=== PATIENT | male | born 1980 | race Caucasian/White ===

== ENCOUNTER 2018-12-29 18:21 | Emergency (ER) | payer OTHER, SELFPAY ==
[2018-12-29 18:25] VITALS: BP 147/94; PULSE 106; RESP 20; TEMP 36.8; O2SAT 98
--- NOTE | 2018-12-29 18:29 | W.ED.GENAD ---
Discharge Plan Disposition Patient Disposition: HOME Condition: Stable Discharge Details Chief Complaint: AnimalBite Clinical Impression: Dog bite of elbow Primary Care Provider: Nick Orlando ED Provider: Martinez Jorge Home Meds and New Rx's Prescriptions: No Action doxycycline hyclate 100 mg tablet 100 mg PO BID Qty: 10 RF: 0 prednisone 20 mg tablet 40 mg PO DAILY Qty: 8 RF: 0 epinephrine 0.3 mg/0.3 mL auto-injector 0.3 mg IM ONCE Qty: 2 RF: 4 Discharge Instructions Instructions: Animal Bite (ED) Additional Instructions: Please continue to keep wound clean and dry and watch for any signs of worsening infection. Please take anabolic as prescribed until fully complete. Feel free to return the emergency department for any new or worsening symptoms otherwise follow-up with your primary care provider or occupational medicine for reassessment as needed. Referrals: Nick Orlando [Primary Care Provider] - (as needed) Discharge Data Discharge Date/Time-TO BE ENTERED AT DEPARTURE: 12/29/18 18:55 Medical Decision Making Patient presenting to the emergency department for chief complaint of animal bite. 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 Patient did have a long sleeve shirt on when this occurred and states minor injury but was unsure due to animal bite. Patient denies any other injury or trauma. There is a small abrasion/penetrating wound to the dorsal lateral aspect of the elbow with no bony tenderness, no abnormal range of motion, no neurological or vascular injury noted. Given animal bite patient does state that he is up-to-date on tetanus and the dog was reported up-to-date on all immunizations including rabies vaccine. Patient was offered prophylactic antibiotics for prevention of infection and encouraged to watch wound close. Patient placed up on Augmentin first dose was given in emergency department. return precautions discussed. After discussion of diagnosis and plan of care patient has no further needs, questions, or concerns and states clear understanding to return to the emergency department for any worsening symptoms or further concerns HPI General Mode of arrival: ambulatory. Date/Time Provider Initiated Documentation: 12/29/18 18:25. Limitations to Documentation: no limitations. Information obtained by: patient and RN notes reviewed. History of Present Illness 38 year old M presents to the emergency department with the chief complaint of Dogbite, right elbow, described as mild, Quality is described as other (denies pain), and is localized to the right and upper extremity. Patient started experiencing this minute(s) (30) Patient notes no other symptoms.. Patient did receive the following treatments prior to arrival, none Related Data Home Medications Medication Instructions Recorded Confirmed doxycycline hyclate 100 mg PO BID #10 tab 12/30/18 prednisone 40 mg PO DAILY #8 tab 12/30/18 epinephrine 0.3 mg IM ONCE #2 each 01/07/19 Previous Rx's Medication Instructions Recorded doxycycline hyclate 100 mg PO BID #10 tab 12/30/18 prednisone 40 mg PO DAILY #8 tab 12/30/18 epinephrine 0.3 mg IM ONCE #2 each 01/07/19 Allergies Allergy/AdvReac Type Severity Reaction Status Date / Time amoxicillin [From Augmentin] Allergy Anaphylaxsi Unverified 01/07/19 16:08 s clavulanic acid Allergy Anaphylaxsi Unverified 01/07/19 16:08 [From Augmentin] s Sulfa (Sulfonamide Allergy Unverified 01/07/19 16:08 Antibiotics) General Stated Complaint: AnimalBite BINTA: 4 Review of Systems Musculoskeletal Denies deformity, Denies limited range of motion and Denies numbness Integumentary/Breasts Reports as per HPI, Denies erythema and Reports wounds Neurologic Denies numbness and Denies paresthesias [facility] Surgical History RHINOPLASTY (~2001) Family History Mother No problems noted. Father Personal history of malignant neoplasm Sister No problems noted. Grandfather Personal history of malignant neoplasm Grandfather No problems noted. Grandmother No problems noted. Grandmother Personal history of malignant neoplasm Daughter No problems noted. Social History Smoking/Tobacco Use Status: Never Drug use: Never Substance use type: does not use Do you feel safe at home: Yes Do you feel safe in your relationship?: Yes Exam Const General: cooperative, healthy appearing, comfortable and no acute distress Orientation: alert, awake and oriented x3 Extrem Right upper extremity: no joint enlargement, elbow/forearm Details: swelling (to dorsal elbow), normal ROM, penetrating wound (to dorsal lateral elbow) and distal pulses intact; no tenderness, no ecchymosis and no crepitus, wrist Details: normal to inspection and hand Details: normal to inspection Course Vital Signs Temperature 36.8 C 12/29/18 18:25 Pulse 106 H 12/29/18 18:25 Respiratory Rate 20 12/29/18 18:25 Blood Pressure 147/94 H 12/29/18 18:25 Pulse Oximetry 98 12/29/18 18:25 Temperature 36.8 C 12/29/18 18:25 Temperature Source Temporal Artery Scan 12/29/18 18:25 Pulse 106 H 12/29/18 18:25 Respiratory Rate 20 12/29/18 18:25 Respiratory Effort Non-Labored 12/29/18 18:25 Blood Pressure 147/94 H 12/29/18 18:25 Blood Pressure Position Sitting 12/29/18 18:25 Pulse Oximetry 98 12/29/18 18:25 Oxygen Delivery Method Room Air 12/29/18 18:25 Oxygen Flow Rate 0 12/29/18 18:25 Pain Level 0 12/29/18 18:25
[2018-12-29] MEDS: Amoxicillin 875/Clav. 125 TAB PO (18:53)
--- NOTE | 2018-12-29 18:56 | NUR.NOTE ---
animal bite form faxed to [facility] at [phone].Nursing Note:
== END 2018-12-29 18:55 | disposition home or self-care (01) ==
PROVIDERS: Emergency Provider Nurse Practitioner Family; PCP Family Medicine
DX: S51.051A Open bite, right elbow, initial encounter (principal); W54.0XXA Bitten by dog, initial encounter; Y35.891A Legal intervention involving other specified means, law enforcement official injured, initial encounter; Y99.0 Civilian activity done for income or pay
CPT/HCPCS: 99283

== ENCOUNTER 2018-12-29 19:47 | Emergency (ER) | payer OTHER, BC, SELFPAY ==
[2018-12-29] VITALS (42 sets, daily range): BP systolic 122–152; BP diastolic 55–79; PULSE 75–126; RESP 11–26; TEMP 36.6; O2SAT 89–98
[2018-12-29] MEDS: diphenhydrAMINE 50 MG/ML VIAL IM (19:50)
[2018-12-29] MEDS: EPINEPHrine 0.3 MG KIT IM ×2 (19:50→20:37)
[2018-12-29] MEDS: methylPREDNISolone SUCC 125 MG VIAL IVP (20:02)
[2018-12-29] MEDS: FAMOTIDINE 20 MG/50 ML BAG 100 MG (22:07)
--- NOTE | 2018-12-29 22:35 | ED.GENADUL_ITS ---
Discharge Plan Disposition Patient Disposition: HOME Discharge Details Chief Complaint: Allergic Clinical Impression: Anaphylactic reaction, Allergy to drug Primary Care Provider: Nick Orlando ED Provider: Jesu Christensen Home Meds and New Rx's Prescriptions: New doxycycline hyclate 100 mg tablet 100 mg PO BID Qty: 10 RF: 0 prednisone 20 mg tablet 40 mg PO DAILY Qty: 8 RF: 0 No Action No Known Home Meds RF: 0 Discharge Instructions Instructions: Anaphylaxis (ED) Additional Instructions: Take benadryl 25mg every 8 hours for the next 3 days. Take prednisone as prescribed. Take doxycycline as prescribed. Stop taking Augmentin. Please contact your primary care physician to arrange follow-up. Return to the ER for any worsening or new concerning symptoms. Stand Alone Forms: Work Release Referrals: Nick Orlando. [Primary Care Provider] - Medical Decision Making 38-year-old male here with severe anaphylactic reaction to Augmentin. Patient treated initially with epinephrine 0.3 mg IM, Benadryl 50 mg IM. IV was established she was given 125 mg of Solu-Medrol as well as Pepcid 20 mg. Patient was reassessed after initial epinephrine administration and had improvement in symptoms but continued to have rash. He was given a second dose of epinephrine 0.3 mg IM. Rash completely resolved. Patient was monitored in the emergency department for 4 hours after administration of epinephrine. He did not have recurrent symptoms. Patient was reassessed prior to discharge in stable. Augmentin was discontinued and patient was started on doxycycline for prophylaxis for his dog bite. Disposition decision was made weighing the risks and benefits of hospitalization versus outpatient treatment, the risk for further decompensation, and the patient's wishes. The patient was stable and requested discharge. Prior to discharge, my usual and customary return precautions were reviewed with the patient - this included follow-up instructions and reason to return to the emergency department if condition worsens, does not improve as expected, or other new concerns arise. HPI General Mode of arrival: ambulatory . Date/Time Provider Initiated Documentation: 12/29/18 19:50 . Limitations to Documentation: no limitations . Information obtained by: patient . HPI Narrative: 38-year-old male with prior history to sulfa antibiotics, presents after just being seen here and treated for dog bite to his right elbow with Augmentin, with chief complaint of allergic reaction. Reaction is severe. He has diffuse body red rash that is itchy. He is having a scratching sensation in his throat and it feels like his lips are swollen. Feels like he is nauseous. No modifiers. Related Data Home Medications Medication Instructions Recorded Confirmed Unknown [No Known Home Meds] 12/30/18 12/30/18 doxycycline hyclate 100 mg PO BID #10 tab 12/30/18 prednisone 40 mg PO DAILY #8 tab 12/30/18 Previous Rx's Medication Instructions Recorded doxycycline hyclate 100 mg PO BID #10 tab 12/30/18 prednisone 40 mg PO DAILY #8 tab 12/30/18 Allergies Allergy/AdvReac Type Severity Reaction Status Date / Time amoxicillin [From Augmentin] Allergy Anaphylaxsi Unverified 12/29/18 20:00 s clavulanic acid Allergy Anaphylaxsi Unverified 12/29/18 20:00 [From Augmentin] s Sulfa (Sulfonamide Allergy Unverified 12/29/18 20:00 Antibiotics) General Stated Complaint: Allergic BINTA: 1 Review of Systems Review of Systems as per HPI, full review limited by acuity of condition [facility] Social History Smoking and Tabacco status: Never Exam Const General: cooperative, well developed and anxious HENMT Mouth: moist mucous membranes Throat: posterior oropharynx normal Eyes Conjunctivae: normal conjunctivae Sclera: normal sclerae Neck Neck: trachea midline and supple Resp Auscultation: clear to auscultation bilaterally, no rales, no rhonchi and no wheezes Cardio Jugular venous pressure: no JVD Rate: tachycardic Rhythm: regular rhythm GI Palpation: soft, not firm, no guarding, no masses, not rigid and nontender Skin Rashes: rashes noted (diffuse full body hives ) Neuro General: alert, awake and tone normal Extrem General: no edema Psych Mental Status: mental status grossly normal Course Vital Signs Temperature 36.6 C 12/29/18 19:57 Pulse 126 H 12/29/18 19:57 Respiratory Rate 22 12/29/18 19:57 Blood Pressure 152/79 H 12/29/18 19:57 Pulse Oximetry 91 L 12/29/18 19:57 Temperature 36.6 C 12/29/18 19:57 Temperature Source Skin 12/29/18 19:57 Pulse 107 H 12/29/18 22:16 Pulse 105 H 12/29/18 22:16 Respiratory Rate 17 12/29/18 22:16 Respiratory Effort 12/29/18 20:26 Respiratory Pattern Normal 12/29/18 20:26 Blood Pressure 137/60 12/29/18 22:16 Blood Pressure Mean 79 12/29/18 22:16 Blood Pressure Position Sitting 12/29/18 19:57 Pulse Oximetry 92 L 12/29/18 22:10 Oxygen Delivery Method Room Air 12/29/18 19:57 Oxygen Flow Rate 0 12/29/18 19:57 Critical Care Time Critical Care Time: Yes Total Critical Care Time: 40 Attestation: I spent greater than 40 minutes addressing this patient's immediate life threats
[2018-12-30 00:01] VITALS: BP 146/67; PULSE 87; PULSE 96; RESP 22; O2SAT 94
== END 2018-12-30 00:24 | disposition home or self-care (01) ==
PROVIDERS: Emergency Provider Student in an Organized Health Care Education/Training Program; PCP Family Medicine
DX: T88.6XXA Anaphylactic reaction due to adverse effect of correct drug or medicament properly administered, initial encounter (principal); L50.0 Allergic urticaria; J02.9 Acute pharyngitis, unspecified; T36.95XA Adverse effect of unspecified systemic antibiotic, initial encounter
CPT/HCPCS: 94640; 96365; 96372; 96375; 99291; J0171; J2930

== ENCOUNTER 2019-01-07 15:51 | Emergency (ER) | payer BC, SELFPAY ==
[2019-01-07] VITALS (13 sets, daily range): BP systolic 122–125; BP diastolic 63–75; PULSE 58–78; RESP 9–21; TEMP 36.4–36.7; O2SAT 91–98
[2019-01-07] MEDS: EPINEPHrine 0.3 MG KIT IM (15:55)
[2019-01-07] MEDS: methylPREDNISolone SUCC 125 MG VIAL (15:59)
[2019-01-07] MEDS: Normal Saline 1,000 ML 1000 ML IV (16:00)
[2019-01-07] MEDS: FAMOTIDINE 20 MG/50 ML BAG 200 MG IVPB (16:05)
--- NOTE | 2019-01-07 18:18 | W.ED.GENAD ---
Discharge Plan Disposition Patient Disposition: HOME Discharge Details Chief Complaint: Allergic Clinical Impression: Allergic reaction to amoxicillin/clavulanic acid Primary Care Provider: Nick Orlando ED Provider: Shaquille Babb Home Meds and New Rx's Prescriptions: New epinephrine 0.3 mg/0.3 mL auto-injector 0.3 mg IM ONCE Qty: 2 RF: 4 No Action doxycycline hyclate 100 mg tablet 100 mg PO BID Qty: 10 RF: 0 prednisone 20 mg tablet 40 mg PO DAILY Qty: 8 RF: 0 Discharge Instructions Instructions: Anaphylaxis (ED) Additional Instructions: Please take the prednisone from your previous prescription as directed. Please take 25 mg of Benadryl every 6-8 hours, and use the epinephrine if you have any signs of allergic reaction again. If you notice any worsening of your symptoms, or any new symptoms such as vomiting, diarrhea, fever, chills, shortness of breath, chest pain, numbness, weakness, or fainting , please return immediately to the emergency department for reevaluation. Please follow up with your primary care provider as soon as possible for reassessment and reevaluation. As always, it was a pleasure participating in your medical care today. Referrals: Nick Orlando. [Primary Care Provider] - Medical Decision Making This is a pleasant 38-year-old male with a past medical history of allergic reaction to Augmentin, who presents today for allergic reaction. He was handling his daughter's amoxicillin pills began to have notable rash, nausea, tightness in throat. Initial physical exam demonstrated notable rash and hives consistent with allergic reaction, and subjective complaint of throat tightening however there was no wheezes rales or rhonchi or signs of airway edema or compromise. Because of the patient's symptoms as well as his previous reaction 8 days ago, 0.3 mg of epinephrine was given intramuscularly into the left lateral thigh, Solu-Medrol and Pepcid were also given, Benadryl was held as he had already taken 100 mg at home. Patient had notable improvement of his symptomatology after this. We will continue to observe the patient for the next 3 hours to reassess for any return of his symptoms. 7 PM Patient symptoms have completely resolved. He denies any GI issues, hyper secretions, throat tightness, his redness and rash is completely resolved. 1 or 2 minimal blanching hives are present, however the plethora of hives that he had before completely resolved. No signs of return of his anaphylaxis. His is gone and picked up the epinephrine that we called him, and so he now has it as needed for use. The patient still has his prednisone that he is prescribed on his last visit and has not taken any pills, and so this course is still appropriate for use. He has home Benadryl already, I do not think additional medication with Pepcid is indicated at this time for home use. Patient will be seeing an cardiovascular or nurse for further follow-up, we discussed the importance of close PCP follow-up, as well as red flags which to return. Discussed the avoidance of any antibiotic in the penicillin family, occluding cephalosporins for the time being. With no current signs of anaphylaxis, no resolution of his symptoms reviewed the patient be safely discharged home as he is clinically stable at this time. I have extensively reviewed the treatment plan and discharge instructions with the patient. I have addressed all patient concerns at this time. The patient was made aware of what symptoms to monitor for that would warrant a return to the emergency department. Discussed the plan with the patient, they demonstrate verbal understanding and agreement with our assessment and plan at this time. HPI General Date/Time Provider Initiated Documentation: 01/07/19 15:57. HPI Narrative: This is a pleasant 38-year-old male who presents today for evaluation of allergic reaction. The patient was here within the past 10 days for allergic reaction. At that time he was bitten by dog and started taking Augmentin, he developed a notable allergic reaction requiring epinephrine and steroids. After resolution of his symptoms he was eventually discharged home. Today he presents again with symptoms of allergic reaction. Patient states that his daughter was prescribed amoxicillin, and he was handling her amoxicillin when he suddenly began to develop a rash, tightness in his throat, and symptoms concerning for allergic reaction. He had no EpiPen, and he came to the ER immediately for reassessment. He had no associated vomiting or diarrhea but did admit to notable nausea. He denies any vision changes, swelling in his tongue, difficulty breathing or swallowing, or difficulty controlling secretions. The patient took none of his steroids that he was prescribed on his last visit, but did take 100 mg of Benadryl prior to arrival here today Related Data Home Medications Medication Instructions Recorded Confirmed doxycycline hyclate 100 mg PO BID #10 tab 12/30/18 prednisone 40 mg PO DAILY #8 tab 12/30/18 epinephrine 0.3 mg IM ONCE #2 each 01/07/19 Previous Rx's Medication Instructions Recorded doxycycline hyclate 100 mg PO BID #10 tab 12/30/18 prednisone 40 mg PO DAILY #8 tab 12/30/18 epinephrine 0.3 mg IM ONCE #2 each 01/07/19 Allergies Allergy/AdvReac Type Severity Reaction Status Date / Time amoxicillin [From Augmentin] Allergy Anaphylaxsi Unverified 01/07/19 16:08 s clavulanic acid Allergy Anaphylaxsi Unverified 01/07/19 16:08 [From Augmentin] s Sulfa (Sulfonamide Allergy Unverified 01/07/19 16:08 Antibiotics) General Stated Complaint: Allergic BINTA: 2 Review of Systems Review of Systems All systems reviewed & are unremarkable except as noted in HPI and below PFSH Social History Smoking/Tobacco Use Status: Never Drug use: Never Substance use type: does not use Do you feel safe at home: Yes Do you feel safe in your relationship?: Yes Exam Narrative Exam Narrative: 1.Const: Well-nourished, Well-developed, appearing stated age 2.Eyes: PERRL, no conjunctival injection, and symmetrical lids. 3.ENT: Atraumatic external nose and ears. Moist MM. Neck: Symmetric, trachea midline, No thyromegaly. No signs of angioedema, airway compromise, stridor, hyper secretions, or other abnormality. 4.CVS: +S1/S2, No murmurs or gallops. Peripheral pulses 2+ and equal in all extremities. Brisk capillary refill in all extremities. 5.RESP: Unlabored respiratory effort. Clear to auscultation bilaterally. No wheezes rales or rhonchi 6.GI: Soft, Nontender/Nondistended, No hepatosplenomegaly. No guarding or rebound. 7.MSK: Normocephalic/Atraumatic, Extremities w/o deformity or ttp No cyanosis or clubbing, Normal movement of all extremities 8.Skin: Warm, Dry. Notable erythema and hives on the patient's chest and neck and arms. No evidence of significant edema. Negative Nikolsky sign. 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 Sensation grossly intact, no focal neurologic deficits. 10.Psych: (AAO) x3. Appropriate mood and affect Course Vital Signs Respiratory Rate 12 01/07/19 15:52 Pulse Oximetry 91 L 01/07/19 15:52 Temperature 36.4 C L 01/07/19 15:56 Temperature Source Temporal Artery Scan 01/07/19 15:56 Pulse 68 01/07/19 16:32 Pulse 67 01/07/19 16:32 Respiratory Rate 15 01/07/19 16:32 Respiratory Effort 01/07/19 16:23 Respiratory Pattern Normal 01/07/19 16:23 Blood Pressure 125/65 01/07/19 16:32 Blood Pressure Mean 77 01/07/19 16:32 Blood Pressure Position Supine 01/07/19 15:56 Pulse Oximetry 96 01/07/19 16:32 Oxygen Delivery Method Room Air 01/07/19 15:56 Oxygen Flow Rate 0 01/07/19 15:56 Pain Level 5 01/07/19 15:56
== END 2019-01-07 19:11 | disposition home or self-care (01) ==
PROVIDERS: Emergency Provider Student in an Organized Health Care Education/Training Program; PCP Family Medicine
DX: L50.0 Allergic urticaria (principal); R11.0 Nausea; R07.0 Pain in throat; T36.0X5A Adverse effect of penicillins, initial encounter
CPT/HCPCS: 96361; 96372; 96374; 96375; 99284; J0171; J2930

== ENCOUNTER 2019-03-27 19:25 | Emergency (ER) | payer OTHER, SELFPAY ==
[2019-03-27 19:30] VITALS: BP 139/84; PULSE 88; RESP 16; TEMP 37; O2SAT 98
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
[2019-03-27] MEDS: Doxycycline Hyclate 100 MG CAP PO (20:02)
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
--- NOTE | 2019-03-29 07:25 | NUR.NOTE ---
referral sent to pt pcp for ED f/u.Nursing Note:
[2019-03-30 11:58] LABS: Hepatitis B Surface Ag Negative (NEGAT)
[2019-03-30 12:03] LABS: Hepatitis C Ab w Rflx HCV PCR Negative (NEGAT)
[2019-03-30 12:04] LABS: HIV-1/2 Ag & Ab Screen Negative (NEGAT)
== END 2019-03-27 21:28 | disposition home or self-care (01) ==
PROVIDERS: Emergency Provider Physician Assistant; PCP Family Medicine
DX: S51.852A Open bite of left forearm, initial encounter (principal); Y04.1XXA Assault by human bite, initial encounter; Y99.0 Civilian activity done for income or pay
CPT/HCPCS: 36415; 86803; 87340; 87389; 99283

== ENCOUNTER 2021-01-19 03:07 | Outpatient (CLI) | payer BC, SELFPAY ==
[2021-01-20 14:37] LABS: COVID-19 RT-PCR UVMMC Result Negative (Negative)
== END 2021-01-19 03:08 | disposition home or self-care (01) ==
LOC: LBO 03:08
PROVIDERS: PCP Family Medicine; Visit Provider Nurse Practitioner Family
DX: Z20.822 Contact with and (suspected) exposure to COVID-19 (principal)
CPT/HCPCS: U0003

== ENCOUNTER 2021-02-01 02:58 | Outpatient (CLI) | payer BC, SELFPAY ==
[2021-02-02 00:26] LABS: COVID-19 RT-PCR UVMMC Result Negative (Negative)
== END 2021-02-01 02:59 | disposition home or self-care (01) ==
LOC: LBO 02:58
PROVIDERS: PCP Family Medicine; Visit Provider Nurse Practitioner Family
DX: Z20.822 Contact with and (suspected) exposure to COVID-19 (principal)
CPT/HCPCS: U0003

== ENCOUNTER 2021-04-02 22:27 | Emergency (ER) | payer OTHER, SELFPAY ==
[2021-04-02 22:37] VITALS: BP 146/93; PULSE 88; RESP 18; TEMP 36.3; O2SAT 96
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
== END 2021-04-02 23:05 | disposition home or self-care (01) ==
PROVIDERS: Emergency Provider Emergency Medicine; PCP Family Medicine
DX: Z77.21 Contact with and (suspected) exposure to potentially hazardous body fluids (principal); Y99.0 Civilian activity done for income or pay
CPT/HCPCS: 99281

== ENCOUNTER 2023-11-14 10:44 | Outpatient (CLI) | payer OTHER, SELFPAY ==
[2023-11-14 11:06] LABS: Calculated LDL 153 mg/dL (<100); Cholesterol 223 mg/dL (<200); Glucose 99 mg/dL (74-106); HDL Cholesterol 49 mg/dL (40-60); Triglyceride 105 mg/dL (<150)
[2023-11-14 19:03] LABS: Hep B Core Antibody Negative (Negative)
== END 2023-11-14 10:45 | disposition home or self-care (01) ==
LOC: LBO 10:47
PROVIDERS: PCP Family Medicine; Visit Provider Family Medicine
DX: E78.5 Hyperlipidemia, unspecified (principal); Z11.59 Encounter for screening for other viral diseases; R73.9 Hyperglycemia, unspecified
CPT/HCPCS: 36415; 80061; 82947; 86704

== ENCOUNTER 2024-01-09 12:20 | Outpatient (CLI) | payer OTHER, SELFPAY ==
[2024-01-09 11:38] LABS: Abs Immature Grans 0.03 10^3/uL (0.0-0.06); Absolute Basophil Count 0.09 10^3/uL (0.0-0.2); Absolute Eosinophil Count 0.44 10^3/uL (0.0-0.7); Absolute Lymphocyte Count 1.81 10^3/uL (1.2-3.4); Absolute Monocyte Count 0.69 10^3/uL (0.1-0.8); Absolute Neutrophil Count 3.86 10^3/uL (1.2-6.7); Basophils % 1.3; Eosinophils % 6.4; HCT 48.7 % (40.0-50.0); Immature Grans % 0.4; Lymphocytes % 26.2; MCH 29.8 pg (27.0-33.0); MCHC 34.9 % (32.0-36.0); MCV 85 fL (80-95); Neutrophils % 55.7; Platelet Count 257 10^3/uL (130-400); RDW 12.9 % (11.8-14.1); RDW-SD 39.6 fL; WBC 6.92 10^3/uL (4.4-10.8)
[2024-01-09 12:34] LABS: Ferritin 312 ng/mL (26-388); TSH 2.24 uIU/Ml (0.36-3.74); Vitamin B12 669 pg/mL (193-986)
[2024-01-09 13:09] LABS: Iron 72 ug/dL (65-175); Total Iron Binding Capacity 295 ug/dL (250-450)
[2024-01-10 09:47] LABS: Transferrin 229 mg/dL (201-352)
== END 2024-01-09 12:21 | disposition home or self-care (01) ==
LOC: LBO 12:20
PROVIDERS: PCP Family Medicine; Visit Provider Nurse Practitioner Family
DX: R53.83 Other fatigue (principal)
CPT/HCPCS: 36415; 82607; 82728; 83540; 83550; 84443; 84466; 85025

== ENCOUNTER 2025-03-08 11:47 | Outpatient (CLI) | payer OTHER, SELFPAY ==
[2025-03-08 12:33] LABS: Calculated LDL 149 mg/dL (<100); Cholesterol 215 mg/dL (<200); Glucose 91 mg/dL (74-106); HDL Cholesterol 47 mg/dL (>or=40); Triglyceride 97 mg/dL (<150)
== END 2025-03-08 11:48 | disposition home or self-care (01) ==
LOC: LBO 11:47
PROVIDERS: PCP Family Medicine; Visit Provider Family Medicine
DX: R73.9 Hyperglycemia, unspecified (principal); E78.5 Hyperlipidemia, unspecified
CPT/HCPCS: 36415; 80061; 82947